=== PATIENT | female | born 1995 | race Caucasian/White ===

== ENCOUNTER 2018-07-07 14:37 | Inpatient (IN) | payer MEDICAID, OTHER, SELFPAY ==
[2018-07-07 15:15] VITALS: BMI 29.2
[2018-07-07] MEDS ORDERED: Ondansetron PF 4 MG/2 ML Vial IVP PRN (17:08)
[2018-07-07] MEDS ORDERED: Lactated Ringer's 1,000 ML IV SCH (17:08)
[2018-07-07] MEDS ORDERED: Promethazine HCl 25 MG/ML VIAL IM PRN (17:08)
[2018-07-07 17:25] LABS: Hemoglobin 11.3 g/dL (12.0-16.0); Mean Corpuscular HGB CONC 34.4 g/dL (32.0-36.0); Mean Corpuscular Hemoglobin 29.6 pg (27.0-31.0); Mean Corpuscular Volume 86.1 fL (78.0-98.0); Mean Platelet Volume 8.8 fL (7.4-10.4); Platelet Count 254 thou/uL (130-400); RBC Distribution Width 12.8 % (11.5-14.5); Red Blood Cell (RBC) Count 3.81 mill/uL (4.20-5.40); White Blood Cell (WBC) Count 10.4 thou/uL (4.8-10.8)
[2018-07-07 18:07] LABS: HBSAg Index 0.18 S/CO (0-0.99); HIV (1/2) Antibody/Antigen Non-Reactive (NonReactive); HIV 1/2 INDEX 0.07 S/CO (<1.00); Hep B Surf Ag Non-Reactive S/CO (NonReactive); Syphilis Antibody Nonreactive (Nonreactive); Syphilis Antibody Index 0.03 S/CO (<1.00 Non-Reactive)
[2018-07-07] MEDS ORDERED: NS w/ Oxytocin 10 units 500 ML IV SCH (19:00)
[2018-07-08] MEDS ORDERED: Butorphanol Tartrate 1 MG/ML VIAL ONE (04:34)
[2018-07-08] MEDS ORDERED: NS / Oxytocin 40 units/1000ml 1,000 ML ONE (07:05)
[2018-07-08] MEDS ORDERED: Lidocaine 1% (PF) 30 ML VIAL ONE (07:05)
[2018-07-08] MEDS: Lactated Ringer's 1,000 ML IV SCH ×2 (07:21→07:22)
[2018-07-08] MEDS ORDERED: Promethazine HCl 25 MG/ML VIAL IM PRN (07:58)
[2018-07-08] MEDS ORDERED: Milk Of Magnesia 30 ML UDCUP PO PRN (07:58)
[2018-07-08] MEDS ORDERED: Benzocaine/Menthol 20-0.5% 60 ML CAN TOP PRN (07:58)
[2018-07-08] MEDS ORDERED: Measles/Mumps/Rubella 10 MCG/0.5 ML VIAL SC ONE (07:58)
[2018-07-08] MEDS ORDERED: Bisacodyl 10 MG SUPP PR PRN (07:58)
[2018-07-08] MEDS ORDERED: HYDROcodone/Acetaminophen 5/325 mg Tablet PO PRN ×2 (07:58)
[2018-07-08] MEDS ORDERED: Ondansetron PF 4 MG/2 ML Vial IVP PRN (07:58)
[2018-07-08] MEDS ORDERED: Lanolin Ointment 7 GM TUBE TOP PRN (07:58)
[2018-07-08] MEDS ORDERED: Adacel (T-DAP) 0.5 ML SYRINGE IM ONE (07:58)
[2018-07-08] MEDS ORDERED: NS / Oxytocin 40 units/1000ml 1,000 ML IV SCH (08:00)
[2018-07-08] MEDS ORDERED: Lidocaine 1% (PF) 30 ML VIAL SC SCH (08:00)
--- NOTE | 2018-07-08 08:46 | DN ---
DATE OF PROCEDURE: 07/08/2018 PREOPERATIVE DIAGNOSES: 1. A 23-year-old G1, at 39 and 6, admitted for advanced cervical dilation and latent labor. 2. GBS negative. 3. Pitocin augmentation. POSTOPERATIVE DIAGNOSES: 1. A 23-year-old G1, at 39 and 6, admitted for advanced cervical dilation and latent labor. 2. GBS negative. 3. Pitocin augmentation. 4. Live born female.6#12. Apgars of 9 /9 ANESTHESIA: Local for repair of first-degree periurethral on the left side and the right lower vaginal tear. ESTIMATED BLOOD LOSS: 150 mL. QUANTITATIVE BLOOD LOSS: 32 mL. CLINICAL HISTORY: This patient is a 23-year-old female, G1, who was seen in the office at [facility] at 39 weeks and 6 days for her routine OB. She complained of some painful cramping earlier that morning and lots of pressure. The patient was examined and noted to be 5 cm, 80% effaced, and -3 station. She was sent over to Labor and Delivery for direct admission and continued expectant management. The patient did not have any palpable contractions when she was admitted. An amniotomy was performed, and shortly thereafter, she was ivelisse regularly every 4 to 6 minutes. The patient did not have progression with her serial exams, so IUPC and scalp electrode were placed, and the patient was started on Pitocin. The patient had adequate contractions, however, did not advance cervical dilation until several hours later with position changes. She then progressed rapidly from 5 cm to 7 to 8 to complete and +1 with a category 1 tracing for the majority of the duration of her labor. DESCRIPTION OF PROCEDURE: The patient with good maternal effort began to push and brought the vertex to the NICOLA position. The head was delivered followed by the anterior shoulder, then the posterior shoulder, then the remainder of the 's body. The infant cried spontaneously. The cord was doubly clamped and cut, and then the was placed on the maternal abdomen with continued attention by the nursing staff for stimulation and drying. The placenta was then delivered spontaneously intact with a 3-vessel cord and was discarded. Cord blood was obtained prior to delivery of the placenta. The exploration of the vagina, cervix, and introitus revealed a left periurethral and a right of the midline vaginal tear, which was repaired in a running fashion with excellent hemostasis. The patient had a firm uterus at the end of the procedure and was cleansed and allowed to recover with her infant. Again, the infant was a live born female with Apgars of 9 and 9 at one and five minutes respectively and weight was unavailable at the time of delivery. There were no other issues surrounding this delivery. All needle, sponge, lap, and instrument counts were correct x2 at the end of the procedure. Job ID: [id number] [facility]
[2018-07-08] MEDS: Ferrous Sulfate 325 MG TAB PO SCH ×2 (12:33→12:35)
[2018-07-08] MEDS: Docusate Calcium (SURFAK) 240 MG CAP PO SCH ×2 (12:33→21:59)
[2018-07-08] MEDS: Prenatal Vitamin 1 TAB PO SCH (12:34)
[2018-07-08] MEDS: Ibuprofen 800 MG TAB PO SCH ×2 (13:34→21:59)
[2018-07-09] MEDS: Ibuprofen 800 MG TAB PO SCH ×3 (06:19→21:39)
[2018-07-09] MEDS: Ferrous Sulfate 325 MG TAB PO SCH ×2 (09:38→14:41)
[2018-07-09] MEDS: Docusate Calcium (SURFAK) 240 MG CAP PO SCH ×2 (09:39→21:39)
[2018-07-09] MEDS: Prenatal Vitamin 1 TAB PO SCH (09:39)
[2018-07-10] MEDS: Ibuprofen 800 MG TAB PO SCH (05:54)
[2018-07-10] MEDS: Ferrous Sulfate 325 MG TAB PO SCH (08:44)
[2018-07-10] MEDS: Prenatal Vitamin 1 TAB PO SCH (10:03)
[2018-07-10] MEDS: Docusate Calcium (SURFAK) 240 MG CAP PO SCH (10:03)
[2018-07-10 11:16] VITALS: BP 90/54; TEMP 98.2
== END 2018-07-10 12:14 | disposition home or self-care (01) | DRG 807 ==
LOC: L&D 14:37 → 3SW 07-08 09:21
PROVIDERS: ADMIT Obstetrics & Gynecology; ATTEND Obstetrics & Gynecology
PROC: 10E0XZZ Delivery of Products of Conception, External Approach (ICD-10-PCS; principal; 2018-07-07)
PROC: 0HQ9XZZ Repair Perineum Skin, External Approach (ICD-10-PCS; 2018-07-07)
DX: O70.0 First degree perineal laceration during delivery (principal); Z37.0 Single live birth; Z3A.39 39 weeks gestation of pregnancy
CPT/HCPCS: 36415; 85027; 86780; 86850; 86900; 86901; 87340; 87389; J0595; J2001